=== PATIENT | male | born 1940 | race Caucasian/White ===

== ENCOUNTER → 2017-06-11 | Outpatient (CLI) | payer MEDICARE ==
[2017-06-11 11:06] LABS: Appearance,Urine Clear (Clear); Bilirubin,Urine Negative (Negative); Blood,Urine Negative (Negative); Color,Urine Yellow; Glucose,Urine (UA) Trace (Negative); Ketones,Urine Negative (Negative); Leukocyte Esterase,Urine Negative (Negative); Nitrite,Urine Negative (Negative); PH, Urine 5.5 (5.0-8.0); Protein,Urine Trace (Negative); Specific Gravity,Urine 1.024 (1.001-1.035); Urobilinogen,Urine <2.0 mg/dL (<2.0)
[2017-06-11 11:10] LABS: HCT 49.1 % (39.0-53.0); HGB 15.8 gm/dL (13.0-17.5); MCH 31.1 pg (25.0-35.0); MCHC 32.1 g/dL (31.0-37.0); Mean Platelet Volume 6.8; Platelet Count 231 k/uL (150-450); RBC 5.06 m/uL (4.30-5.90); RDW 12.6 % (11.5-15.5); WBC 6.4 k/uL (3.8-10.6)
[2017-06-11 11:22] LABS: ALT 19 U/L (21-72); AST 16 U/L (17-59); Albumin 4.1 g/dL (3.5-5.0); Alkaline Phosphatase 66 U/L (38-126); Anion Gap 12 mmol/L; Blood Urea Nitrogen 36 mg/dL (9-20); Calcium 9.9 mg/dL (8.4-10.2); Carbon Dioxide 29 mmol/L (22-30); Chloride 102 mmol/L (98-107); Glucose 151 mg/dL (74-99); Potassium 4.7 mmol/L (3.5-5.1); Sodium 143 mmol/L (137-145); Total Bilirubin 0.4 mg/dL (0.2-1.3); Total Protein 6.6 g/dL (6.3-8.2)
[2017-06-11 11:28] LABS: Partial Thromboplastin Time 22.3 sec (22.0-30.0); Prothrombin Time 10.1 sec (9.0-12.0)
== END | disposition home or self-care (01) ==
LOC: LABPAT 10:03
PROVIDERS: ATTEND Orthopaedic Surgery
DX: Z01.818 Encounter for other preprocedural examination (principal); Z01.812 Encounter for preprocedural laboratory examination; Z51.81 Encounter for therapeutic drug level monitoring; Z79.01 Long term (current) use of anticoagulants
CPT/HCPCS: 36415; 80053; 81003; 85027; 85610; 85730; 87070; 93005

== ENCOUNTER 2017-07-19 15:20 | Emergency (ER) | payer MEDICARE ==
[2017-07-19 15:26] VITALS: TEMP 97.5
[2017-07-19] MEDS ORDERED: MORPHINE SULFATE 4 MG/ML SYRINGE IM STA ×2 (15:59→18:37)
--- NOTE | 2017-07-19 16:03 | ED ---
General Adult HPI - General Chief complaint: Extremity Problem,Nontraumatic Stated complaint: right leg pain; hx of knee surgery last mo Time Seen by Provider: 07/19/17 15:41 Source: patient, family, RN notes reviewed Mode of arrival: wheelchair Limitations: no limitations - History of Present Illness Initial comments: 76-year-old male presents to the emergency department for chief complaint of right lower extremity pain. The pain has been ongoing for the past week but has worsened in the last 2 days. Patient states he couldn't sleep last night. He is on [place] 7.5 and is taking 2 q4h. This helps the pain somewhat. He says he took 2 about 4 hours ago which is helping at the moment, but wearing off. Patient has a history of a total knee replacement [address] Zheng without complications. According to the reports he did have a delayed discharge due to pain control. Patient states the pain is mostly on the medial side of the calf and thigh. Patient saw Dr. Zheng one week ago but didn't mention the pain because it started to hurt worse after the appointment. Patient states he is diabetic and has had a foot ulcer in the past. He sees Dr. Zheng again on August 04. - Related Data Home Medications Medication Instructions Recorded Confirmed Atenolol [Tenormin] 100 mg PO BID 06/01/15 07/19/17 Hydrochlorothiazide [Hydrodiuril] 25 mg PO DAILY 06/01/15 07/19/17 Lisinopril [Zestril] 20 mg PO DAILY 06/01/15 07/19/17 Gabapentin [Neurontin] 300 mg PO TID 06/13/17 07/19/17 INSULIN LISPRO (HumaLOG) [humaLOG] See Protocol SQ AC-TID 06/13/17 07/19/17 Insulin Glargine,Hum.rec.anlog 60 unit SQ HS 06/13/17 07/19/17 [Jai Black U-100] Naproxen [Naprosyn] 500 mg PO Q12HR 06/13/17 07/19/17 Pravastatin Sodium [Pravachol] 80 mg PO DAILY 06/24/17 07/19/17 Hydrocodone/Acetaminophen [[place] 1 tab PO Q4-6H PRN 07/19/17 07/19/17 7.5-325] Multivitamins, Thera [Multivitamin 1 tab PO DAILY 07/19/17 07/19/17 (formulary)] Naproxen Sodium [Aleve] 220 mg PO Q12HR PRN 07/19/17 07/19/17 Previous Rx's Medication Instructions Recorded Aspirin 325 mg PO BID #60 tab 06/26/17 Clopidogrel Bisulfate [Plavix] 75 mg PO DAILY #30 tab 06/26/17 Sennosides [Senokot] 1 tab PO BID #60 tablet 06/26/17 Allergies Allergy/AdvReac Type Severity Reaction Status Date / Time No Known Allergies Allergy Verified 07/19/17 16:11 Review of Systems ROS Statement: Those systems with pertinent positive or pertinent negative responses have been documented in the HPI. ROS Other: All systems not noted in ROS Statement are negative. 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, gamma knife brain surgery for meningiomas 2015,2016 Past Anesthesia/Blood Transfusion Reactions: No Reported Reaction Past Psychological History: No Psychological Hx Reported Smoking Status: Never smoker Past Alcohol Use History: None Reported Past Drug Use History: None Reported - Past Family History Mother Family Medical History: Hearing Disorder / Deafness, Osteoarthritis (OA) Father Family Medical History: AICD/Pacemaker, Congestive Heart Failure (CHF), Coronary Artery Disease (CAD), Diabetes Mellitus, Hearing Disorder / Deafness, Hypertension, Pneumonia General Exam Limitations: no limitations Head exam: Present: atraumatic, normocephalic, normal inspection Neck exam: Present: normal inspection. Absent: tenderness, meningismus, lymphadenopathy Respiratory exam: Present: normal lung sounds bilaterally. Absent: respiratory distress, wheezes, rales, rhonchi, stridor Cardiovascular Exam: Present: regular rate, normal rhythm, normal heart sounds. Absent: systolic murmur, diastolic murmur, rubs, gallop, clicks GI/Abdominal exam: Present: soft, normal bowel sounds. Absent: distended, tenderness, guarding, rebound, rigid Extremities exam: Present: tenderness (Tenderness to palpation along the medial aspect of the right knee), normal capillary refill (Less than 2 seconds in the right knee), joint swelling (Minimal joint swelling noted), other (Anterior incision along right knee is noted. No signs of infection including redness or drainage from the incision. Patients left leg amputated above the knee.). Absent: full ROM (Limited range of motion of the right knee), pedal edema Course Vital Signs 07/19/17 15:23 Temperature 97.5 F L Pulse Rate 68 Respiratory 16 Rate Blood Pressure 152/74 O2 Sat by Pulse 96 Oximetry Medical Decision Making - Medical Decision Making 76-year-old male presents to the emergency department for right knee pain. Patient states he had a total knee done by Dr. Zheng 1 month ago. States this pain just started in the past week. It is in the medial aspect of his calf as well as his thigh. Patient takes 2 7.5 [place] every 4 hours which is not helping the pain. Patient says he can't sleep through the night. He is seeing Dr. Zheng again on August 04. Patient was given 4 mg of morphine with minimal relief. He was given another 2 mg thereafter because he still had considerable pain in the right knee. 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 X-ray shows a tricompartmental knee arthroplasty. Hardware appears intact. No osteolytic or osteoblastic lesions noted. No acute abnormality is seen however soft tissue swelling is noted. Patient was given 8 mg of morphine and feels better at this time. He is directed to limit taking 2 [place] every 6 hours instead of every 4 hours due to the Tylenol in them. He can take his Aleve between these doses of [place] with food. Patient will be directed to follow up with Dr. Zheng in one to 2 days. He is to return to the emergency Department if he notices any signs of infection or the pain continues to worsen. Disposition Clinical Impression: Knee pain Disposition: HOME SELF-CARE Condition: Good Instructions: Knee Pain (ED) Additional Instructions: Please limit [place] intake to 2 [place]'s every 6 hours instead of every 4 hours. He may take Aleve with food between these doses. Please follow-up with Dr. Zheng in 1 to 2 days to discuss pain management. Please return to the emergency Department if pain continues to worsen or he noticed signs of infection. Referrals: Annie Alvarenga MD [Primary Care Provider] - 1-2 days Simone Zheng DO [Doctor of Osteopathic Medicine] - 1-2 days Time of Disposition: 18:36
--- NOTE | 2017-07-19 17:15 | US ---
EXAMINATION TYPE: US venous doppler duplex LE RT DATE OF EXAM: 07/19/2017 3:54 PM COMPARISON: NONE CLINICAL HISTORY: Pain. Knee replacement 1 month ago. Pain SIDE PERFORMED: Right TECHNIQUE: The lower extremity deep venous system is examined utilizing real time linear array sonog fay with graded compression, doppler sonography and color-flow sonography. VESSELS IMAGED: External Iliac Vein (EIV) Common Femoral Vein Deep Femoral Vein Greater Saphenous Vein * Femoral Vein Popliteal Vein Small Saphenous Vein * Proximal Calf Veins (* superficial vessels) Right Leg: Negative for DVT. In the right popliteal fossa, there is a hypoechoic area visualized measuring 1.8 x 0.9 x 1.7 cm, pro bable Cordon's cyst IMPRESSION: Grayscale, color doppler, spectral doppler imaging performed of the deep veins of the lo wer extremities. There is normal flow, compressibility, vascular waveforms. No DVT is seen. 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
[2017-07-19] MEDS ORDERED: MORPHINE SULFATE 4 MG/ML SYRINGE IVP ONE (17:26)
[2017-07-19] MEDS ORDERED: MORPHINE SULFATE 4 MG/ML SYRINGE IM ONE (17:37)
--- NOTE | 2017-07-19 18:09 | XR ---
EXAMINATION TYPE: XR knee complete RT DATE OF EXAM: 07/19/2017 CLINICAL HISTORY: Right knee pain TECHNIQUE: Three views of the right knee are obtained. COMPARISON: June 24, 2017 FINDINGS: There is been a tricompartmental knee arthroplasty. Extensive vascular calcifications are n oted in the suprageniculate popliteal artery as well as the infrageniculate popliteal artery. Hardwar e appears intact. No osteolytic or osteoblastic lesions are seen. There is some subcuticular reticula tion in the anterior aspect of the thigh which could be related to subcutaneous edema. IMPRESSION: No acute abnormality is seen. Soft tissue swelling is noted.
[2017-07-19 18:14] VITALS: BP 122/64; PULSE 64; RESP 18
== END 2017-07-19 19:02 | disposition home or self-care (01) ==
LOC: EC 15:20
DX: M71.21 Synovial cyst of popliteal space [Baker], right knee (principal); E11.9 Type 2 diabetes mellitus without complications; I10 Essential (primary) hypertension; M19.90 Unspecified osteoarthritis, unspecified site; Z86.73 Personal history of transient ischemic attack (TIA), and cerebral infarction without residual deficits; Z79.4 Long term (current) use of insulin; Z79.1 Long term (current) use of non-steroidal anti-inflammatories (NSAID); Z79.899 Other long term (current) drug therapy; Z96.659 Presence of unspecified artificial knee joint; Z53.8 Procedure and treatment not carried out for other reasons
CPT/HCPCS: 73562; 93971; 99284; 96372 ×3; J2270